=== PATIENT | female | born 1945 | race Caucasian/White ===

== ENCOUNTER → 2025-09-21 02:29 | Outpatient (CLI) | payer MEDICARE, SELFPAY ==
[2025-09-21] MEDS: Normal Saline Flush 10 ML SYR IVP (14:48)
[2025-09-21] MEDS: Normal Saline - Diluent 50 ML VIAL IJ (14:48)
[2025-09-21] MEDS: Omnipaque 350 MG/ML 100 ML BTL IJ (14:49)
--- NOTE | 2025-09-21 15:02 | DI.CT_ITS ---
Exam(s) CT NECK W EXAM: CT NECK W CLINICAL HISTORY: neck pain x 3 months,M54.2. TECHNIQUE: Imaging Protocol: Axial computed tomography images with coronal and sagittal reformatted images were created and reviewed. CONTRAST MATERIAL: Intravenous: Omnipaque 350 Contrast volume:100mL COMPARISON: No exams were available for comparison FINDINGS: Visualized intracranial structures: Within normal limits. Orbits and orbital soft tissues: Within normal limits. Visualized paranasal sinuses: Within normal limits. Pharynx: Within normal limits. Larynx: Within normal limits. Retropharyngeal space: Within normal limits. Parotids/submandibular: Within normal limits. Thyroid gland: There is a 0.5 cm hypodense nodule in the inferior left lobe and a 4 mm homogeneously hypodense nodule in the posterior mid right lobe. No follow-up is recommended. Lymphadenopathy: There is scattered lymph nodes seen along the level one to level three all measuring less than 8 mm in short axis diameter which are physiologic in nature. Trachea: Within normal limits. Lung apices: Within normal limits. Bones: Within normal limits for the patient's age. Carotids/Jugular: Within normal limits. Soft tissues: Within normal limits. IMPRESSION: 1. There is no evidence of a soft tissue mass or adenopathy in the neck. 2. No acute abnormality. RADIATION DOSE DELIVERED: 197.06mGy.cm Total DLP 197.06mGy.cm Total DLP DATA REPOSITORY: All CT scans at this facility are submitted to the National Radiology Data Registry (NRDR) Dose Index Registry (DIR) with the [employer] ([employer]). RADIATION OPTIMIZATION: All CT scans at this facility use at least one of these dose optimization techniques: automated exposure control; mA and/or kV adjustment per patient size (includes targeted exams where dose is matched to clinical indication); or iterative reconstruction.
== END ==
LOC: DI 02:29
PROVIDERS: PCP Nurse Practitioner Pediatrics; Visit Provider Registered Nurse Maternal Newborn
DX: M54.2 Cervicalgia (principal)
CPT/HCPCS: 70491; 82565; J3490